=== PATIENT | female | born 1965 | race Hispanic/Latino ===

== ENCOUNTER → 2023-08-31 07:27 | Outpatient (REF) | payer BC, SELFPAY | LOC: REG 07:27 | PROVIDERS: ATTENDING PHYSICIAN Physician Assistant Medical | DX: R19.7 Diarrhea, unspecified (principal) | CPT/HCPCS: 87045; 87046; 87328; 87329; 87427 ==

== ENCOUNTER → 2023-10-12 14:15 | Outpatient (REF) | payer BC, SELFPAY | LOC: WDC 14:15 | PROVIDERS: ATTENDING PHYSICIAN Physician Assistant Medical | DX: Z12.31 Encounter for screening mammogram for malignant neoplasm of breast (principal) | CPT/HCPCS: 77063; 77067 ==

== ENCOUNTER → 2023-12-11 15:52 | Outpatient (REF) | payer BC, SELFPAY ==
[2023-12-28 20:15] LABS: Chlamydia trachomatis,ThinPrep Negative (Negative); Neisseria gonorrhoeae,ThinPrep Negative (Negative); Specimen Source Cervical
== END ==
LOC: CLAB 15:52
PROVIDERS: ATTENDING PHYSICIAN Physician Assistant Medical
DX: Z01.419 Encounter for gynecological examination (general) (routine) without abnormal findings (principal)
CPT/HCPCS: 87491; 87591

== ENCOUNTER → 2024-02-20 08:04 | Outpatient (REF) | payer BC, SELFPAY | LOC: WDC 08:04 | PROVIDERS: ATTENDING PHYSICIAN Physician Assistant Medical | DX: R92.30 Dense breasts, unspecified (principal) | CPT/HCPCS: 76641 ==

== ENCOUNTER → 2024-05-05 15:23 | Outpatient (REF) | payer BC, SELFPAY ==
[2024-05-05 16:20] LABS: Urine Albumin Negative (Neg - Trace); Urine Bilirubin Negative (Negative); Urine Character Clear (Clear); Urine Glucose Negative (Negative); Urine Ketone Negative (Negative); Urine Nitrite Negative (Negative); Urine Occult Blood Negative (Negative); Urine Urobilinogen Negative (Neg - 1+)
[2024-05-05 16:33] LABS: Urine Color Yellow; Urine Leukocyte Negative (Negative); Urine Specific Gravity 1.005 (<1.030)
== END ==
LOC: REG 15:23
PROVIDERS: ATTENDING PHYSICIAN Physician Assistant Medical
DX: R94.5 Abnormal results of liver function studies (principal); R35.0 Frequency of micturition; N39.0 Urinary tract infection, site not specified
CPT/HCPCS: 81003

== ENCOUNTER → 2024-08-21 15:01 | Outpatient (REF) | payer BC, SELFPAY | LOC: WDC 15:01 | PROVIDERS: ATTENDING PHYSICIAN Physician Assistant Medical | DX: R92.8 Other abnormal and inconclusive findings on diagnostic imaging of breast (principal) | CPT/HCPCS: 76642 ==

== ENCOUNTER → 2024-10-17 09:13 | Outpatient (REF) | payer BC, SELFPAY | LOC: WDC 09:13 | PROVIDERS: ATTENDING PHYSICIAN Family Medicine | DX: Z12.31 Encounter for screening mammogram for malignant neoplasm of breast (principal) | CPT/HCPCS: 77063; 77067 ==

== ENCOUNTER → 2024-11-05 08:41 | Outpatient (REF) | payer BC, SELFPAY | LOC: WDC 08:41 | PROVIDERS: ATTENDING PHYSICIAN Family Medicine | DX: R92.8 Other abnormal and inconclusive findings on diagnostic imaging of breast (principal) | CPT/HCPCS: 76642 ==

== ENCOUNTER → 2024-11-17 07:49 | Outpatient (REF) | payer BC, SELFPAY ==
--- NOTE | 2024-11-17 13:27 | OID.BR.INTR ---
[facility] Breast Navigator - Initial
- -
Date of Contact: 11/17/24
Met with patient. Patient given written information on navigator service available at [facility]. Will follow up as needed per protocol.
== END ==
LOC: WDC 07:49
PROVIDERS: ATTENDING PHYSICIAN Family Medicine
DX: N63.12 Unspecified lump in the right breast, upper inner quadrant (principal)
CPT/HCPCS: 19083; 88305; 88341; 88342; 88360; A4648

== ENCOUNTER → 2024-12-02 14:56 | Outpatient (REF) | payer BC, SELFPAY | LOC: WDC 14:56 | PROVIDERS: ATTENDING PHYSICIAN Surgery | DX: R92.30 Dense breasts, unspecified (principal) | CPT/HCPCS: 76641 ==

== ENCOUNTER → 2024-12-21 08:20 | Outpatient (REF) | payer BC, SELFPAY | LOC: WDC 08:20 | PROVIDERS: ATTENDING PHYSICIAN Surgery | DX: C50.411 Malignant neoplasm of upper-outer quadrant of right female breast (principal) | CPT/HCPCS: 19285; 38792; 76942; A4648; A9541 ==

== ENCOUNTER 2024-12-22 06:17 | Day surgery (SDC) | payer BC, SELFPAY ==
[2024-12-07 08:56] LABS: Hematocrit 39.8 % (37.0-47.0); Hemoglobin 13.3 g/dL (12.0-16.0); Mean Corp Hgb Conc. 33.4 g/dL (33.0-37.0); Mean Corpuscular Volume 92.8 fL (81.0-99.0); Platelet Count 281 10^3/uL (130-400); Red Cell Dist. Width 11.7 % (11.5-14.5)
[2024-12-07 09:23] LABS: ALT (SGPT) 55 U/L (0-35); AST (SGOT) 39 U/L (14-36); Albumin 4.5 g/dl (3.5-5.0); Alkaline Phosphatase 118 U/L (38-126); Blood Urea Nitrogen 11 mg/dl (7-17); Calcium 9.4 mg/dl (8.4-10.2); Carbon Dioxide 28 mmol/L (22-30); Chloride 107 mmol/L (98-107); Glucose 90 mg/dl (70-99); Potassium 4.3 mmol/L (3.5-5.1); Sodium 142 mmol/L (135-145); Total Protein 7.6 g/dl (6.3-8.2); eGFR > 60.00
[2024-12-07 09:29] LABS: Prealbumin (Transthyretin) 25.7 mg/dl (17.6-36.0)
[2024-12-07 09:41] LABS: Vitamin D, 25-OH*** 41.1 ng/mL (30-80)
[2024-12-07 14:00] VITALS: BMI 26.9
[2024-12-22] VITALS (9 sets, daily range): BP systolic 104–138; BP diastolic 47–90; BMI 25.4; BMI 26.9
[2024-12-22] MEDS: LOVENOX 40 MG SC (12:02)
[2024-12-22] MEDS: TYLENOL 1000 MG PO (12:02)
[2024-12-22] MEDS: NORMOSOL-R/PLASMALYTE-A 1000 IV (12:03)
[2024-12-22 12:06] LABS: Glucose - Point of Care 72 mg/dl (70-99)
[2024-12-22] MEDS: DILAUDID 0.5 MG IV (14:09)
[2024-12-22 14:36] LABS: Glucose - Point of Care 95 mg/dl (70-99)
--- NOTE | 2024-12-22 14:37 | W.IMMPOSTOP ---
Surgical Immed Post Op Note
-
Primary Surgeon: Nadia
Assisting Surgeon: None
Pre-op Diagnosis: Right breast ca
Post-op Diagnosis: Right breast ca
Procedure Performed: Right localized lumpectomy, sentinel lymph node mapping and biopsy
Anesthesia Type: LMA/TIVA
Specimen / Cultures: right lumpectomy margins, sentinel lymph nodes
Estimated Blood Loss: 6cc
Complications: None
Operative Findings: Mass, clip and reflector are in specimen
--- NOTE | 2024-12-22 14:39 | OR.RPT ---
Operative Report
Operative Report
Date of procedure: 12/22/2024
Surgeon: Nadia
Preoperative diagnosis: Right breast carcinoma
Postoperative diagnosis: Right breast carcinoma
Procedure right localized lumpectomy and sentinel lymph node mapping and biopsy
The patient is a 59-year-old female who had image detected early stage favorable right breast carcinoma and opted for breast conservation surgery. The day prior to the procedure the patient presented to the breast imaging center where Leslie
reflector was placed at the tumor site and technetium radiotracer was injected into the breast parenchyma.
On the day of the procedure, the patient presented to the same-day surgical services unit where she was prepped. DVT and antibiotic prophylaxis were provided. The patient verified site and procedure. She was taken to the operating room and in the
supine position LMA/TIVA anesthesia was induced.
Appropriate timeout procedure was performed by all staff members. All tissues were prepped and draped in the usual sterile fashion and then anesthetized with 1% lidocaine plain. Attention was first turned to the axilla where a curvilinear incision
was made overlying the area of highest external gamma count. Dissection was carried through clavipectoral fascia using the cautery. 2 sentinel node packets were retrieved and identified using the neoprobe. Feeding vessels to the nose were
controlled with 3-0 silk tie. After their removal there was a greater than 4 fold reduction of background count. Hemostasis was verified. Marcaine 0.5% plain was instilled and the wound was closed using simple interrupted 3-0 plain in multiple
layers including deep intermediate and subcutaneous. Skin was closed using a running subcuticular 4 Monocryl. Next attention was turned to the lumpectomy where a curvilinear incision was made overlying the area of highest Leslie signal. Skin flaps
were elevated and dissection was carried down to the mass which was widely excised. Time antibody was noted and the specimen was oriented for the pathologist and sent for permanent analysis. Additional margins were harvested from the posterior,
medial, superior, lateral, inferior, and anterior dimensions. These were oriented as well.
Hemostasis was verified. Marcaine 0.5% plain was instilled into all tissues and the wound was irrigated suction with warm water. Hemoclips were placed in the resection cavity and this wound was closed in the same manner as the axillary incision.
Surgical glue and sterile compressive dressings were applied to both incisions. The patient was transferred to the recovery room in stable condition
([id number])
[place] Node Bx Breast Cancer
[place] Node Bx Breast Cancer
Operation performed with curative intent: Yes
Tracer(s) to ID [place] Nodes in Non-Neoadjuvant setting: Radioactive Tracer
Tracer(s) to ID [place] Nodes in the Neoadjuvant Setting: N/A
All nodes at end of dye-filled Lymphatic Channel removed: N/A
All Significantly Radioactive Nodes were removed: Yes
All Palpably Suspicious Nodes were Removed: Yes
Bx Proven Pos Nodes Marked Prior to Chemo ID'd & Removed: N/A
== END 2024-12-22 15:40 | disposition home or self-care (01) ==
LOC: SDS 06:17
PROVIDERS: ATTENDING PHYSICIAN Surgery; FAMILY PHYSICIAN Physician Assistant Medical
DX: C50.911 Malignant neoplasm of unspecified site of right female breast (principal)
CPT/HCPCS: 38525; 19301; 38900; 36415; 76098; 80053; 82306; 82962; 84134; 85027; 88305; 88307; 88342; 93005; L8000